=== PATIENT | female | born 1975 | race African-American/Black ===

== ENCOUNTER 2016-05-05 10:40 | Emergency (ER) | payer OTHER ==
[~2016-05-05] VITALS: Ht 170.2 cm; Wt 97.5 kg
[~2016-05-05 10:40] MED LIST: ACETAMINOPHEN-1 EAC1 PO; AMBIEN; AMBIEN 10 MG TA10 MG PO; AMOXICILLIN 50500 M1 PO; ASPIRIN EC81 M1 PO; ATIVAN0.5 M1 PO; ATIVAN1 MG PO; ATORVASTATIN CA40 MG PO; BUSPIRONE HCL10 MG PO; CELEXA; CELEXA10 MG PO; CIPRO500 MG PO; CIPROFLOXACIN500 M1 PO; DEPAKOTE 250MG250 M1 PO; DEPAKOTE250 MG PO; DEPAKOTE500 MG PO; DESYREL; DYAZIDE 37.5-21 EACH; DYAZIDE 37.5-21 EACH PO; FIORICET 50-301 EACH PO; FLONASE 0.05%50 MCG NASAL; GLIPIZIDE XL5 MG PO; GLIPIZIDE5 MG PO; GLUCOPHAGE XR500 MG PO; GLUCOPHAGE1000 MG PO; HYDROXYZINE HCL25 M2 PO; IBUPROFEN 600600 M1 PO; IBUPROFEN 800800 M1 PO; IBUPROFEN 800800 MG PO; IPRAT-ALBUT 0.5-3 ML IH; JANUMET XR 50-1 EAC1 PO; LAMICTAL; LEVAQUIN 500 M500 MG PO; LEVAQUIN 750 M750 MG PO; LISINOPRIL5 MG PO; LOVASTATIN; MAXZIDE-25 MG1 EACH PO; MECLIZINE 25 MG25 M1 PO; NAPROSYN500 MG PO; NORCO 5-325 TA1 EACH PO; NORFLEX100 MG PO; NORVASC 2.5 MG2.5 M1 PO; NORVASC10 MG PO; PAROXETINE HCL20 MG PO; PHENERGAN 25 MG25 M1 PO; PHENERGAN50 MG RC; POTASSIUM20 PO; PREDNISONE 20 M20 MG PO; PROMETHAZINE-C120 ML PO; SLOW-MAG64 MG PO; TESSALON PERLE100 MG PO; TRAZODONE HCL50 MG PO; VALIUM5 MG PO; ZANTAC 150MG T150 M1 PO; ZOFRAN 4 MG ORAL4 MG PO; ZOFRAN ODT4 M1 PO; ZOFRAN ODT4 MG DISSOLVE; ZOFRAN ODT4 MG PO; ZOFRAN4 MG PO; ZPAK PO
[2016-05-05] MEDS ORDERED: ORPHENADRINE C100 M2 PO (11:21)
== END 2016-05-05 11:44 | disposition home or self-care (01) ==
LOC: ER 10:40
DX: M54.32 Sciatica, left side (principal); E11.9 Type 2 diabetes mellitus without complications; I10 Essential (primary) hypertension; F41.9 Anxiety disorder, unspecified; F32.9 Major depressive disorder, single episode, unspecified; E78.00 Pure hypercholesterolemia, unspecified; G47.00 Insomnia, unspecified; Z88.5 Allergy status to narcotic agent; Z88.2 Allergy status to sulfonamides; Z88.1 Allergy status to other antibiotic agents; Z88.6 Allergy status to analgesic agent

== ENCOUNTER 2016-08-12 12:21 | Emergency (ER) | payer OTHER ==
[~2016-08-12] VITALS: Ht 170.2 cm; Wt 98.9 kg
[~2016-08-12 12:21] MED LIST changes: +ORPHENADRINE C100 M2 PO
[2016-08-12] MEDS ORDERED: DOXEPIN 10 MG C10 MG PO (12:33)
[2016-08-12] MEDS ORDERED: AMOXICILLIN500 M1 PO (13:23)
[2016-08-12] MEDS ORDERED: IBUPROFEN 600600 M1 PO (13:23)
== END 2016-08-12 13:49 | disposition home or self-care (01) ==
LOC: ER 12:21
DX: J02.9 Acute pharyngitis, unspecified (principal); I10 Essential (primary) hypertension; F41.9 Anxiety disorder, unspecified; E11.9 Type 2 diabetes mellitus without complications; F32.9 Major depressive disorder, single episode, unspecified; E78.00 Pure hypercholesterolemia, unspecified; Z90.710 Acquired absence of both cervix and uterus; Z88.5 Allergy status to narcotic agent; Z88.2 Allergy status to sulfonamides; Z88.6 Allergy status to analgesic agent; Z88.1 Allergy status to other antibiotic agents

== ENCOUNTER 2016-10-14 09:34 | Emergency (ER) | payer OTHER ==
[~2016-10-14] VITALS: Ht 170.2 cm; Wt 98.4 kg
--- NOTE | ~2016-10-14 | EKG ---
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
[~2016-10-14 09:34] MED LIST changes: +AMOXICILLIN500 M1 PO; +DOXEPIN 10 MG C10 MG PO
[2016-10-14 10:01] LABS: BASOPHILS 0.6 % (0.0-2.0); EOSINOPHILS 3.4 % (0.0-3.0); HEMATOCRIT 39.9 % (37.0-47.0); HEMOGLOBIN 13.8 gm/dL (12.0-15.0); LYMPHOCYTES 38.1 % (24.0-44.0); MANUAL DIFF NO; MCH 30.4 pg (26.0-34.0); MCHC 34.6 g/dL (28.0-37.0); MONOCYTES 7.6 % (1.0-8.0); PLATELET COUNT 361 thou/uL (150-400); POLYS 50.3 % (36.0-66.0); RBC 4.53 mil/uL (4.20-5.00); RDW 12.2 % (10.5-14.5); WBC 7.9 thou/uL (4.0-11.0)
[2016-10-14 10:08] LABS: ANION GAP 10 mmol/L (7-16); BUN 12 mg/dL (7-18); CALCIUM 9.5 mg/dL (8.5-10.1); CHLORIDE 104 mmol/L (98-107); CO2 25 mmol/L (21-32); CREATININE 0.8 mg/dL (0.6-1.0); GLUCOSE 145 mg/dL (74-106); POTASSIUM 3.9 mmol/L (3.5-5.1); SODIUM 139 mmol/L (136-145)
[2016-10-14 10:16] LABS: TROPONIN-I < 0.04 ng/mL (<0.04-0.07)
[2016-10-14] MEDS ORDERED: NAPROSYN500 MG PO (10:40)
== END 2016-10-14 11:09 | disposition home or self-care (01) ==
LOC: ER 09:34
PROVIDERS: Nurse Practitioner
DX: M94.0 Chondrocostal junction syndrome [Tietze] (principal); I10 Essential (primary) hypertension; F41.9 Anxiety disorder, unspecified; E11.9 Type 2 diabetes mellitus without complications; F32.9 Major depressive disorder, single episode, unspecified; E78.00 Pure hypercholesterolemia, unspecified; Z90.710 Acquired absence of both cervix and uterus; Z88.5 Allergy status to narcotic agent; Z88.2 Allergy status to sulfonamides; Z88.1 Allergy status to other antibiotic agents; Z88.6 Allergy status to analgesic agent

== ENCOUNTER 2017-02-07 08:27 | Emergency (ER) | payer OTHER ==
[~2017-02-07] VITALS: Ht 170.2 cm; Wt 98.4 kg
[~2017-02-07 08:27] MED LIST changes: +METFORMIN HCL500 MG PO
[2017-02-07] MEDS ORDERED: ABILIFY 5 MG TAB5 MG PO (08:49)
[2017-02-07] MEDS ORDERED: NEURONTIN 300M300 M2 PO (08:49)
[2017-02-07 09:07] LABS: ABSOLUTE NEUTROPHILS 6.6 thou/uL (1.4-8.2); BASOPHILS 0.6 % (0.0-2.0); EOSINOPHILS 2.7 % (0.0-3.0); HEMOGLOBIN 12.2 gm/dL (12.0-15.0); LYMPHOCYTES 31.9 % (24.0-44.0); MCH 29.6 pg (26.0-34.0); MCV 87.1 fL (80.0-100.0); PLATELET COUNT 374 thou/uL (150-400); POLYS 58.8 % (36.0-66.0); RBC 4.13 mil/uL (4.20-5.00); RDW 11.9 % (10.5-14.5); WBC 11.2 thou/uL (4.0-11.0)
[2017-02-07 09:08] LABS: URINE BILIRUBIN NEGATIVE (Negative); URINE BLOOD NEGATIVE (Negative); URINE COLOR YELLOW; URINE GLUCOSE-RANDOM* NEGATIVE (Negative); URINE KETONES NEGATIVE (Negative); URINE NITRITE NEGATIVE (Negative); URINE PROTEIN (DIPSTICK) NEGATIVE (Negative); URINE SPECIFIC GRAVITY 1.025 (1.003-1.035); URINE UROBILINOGEN 0.2 E.U./dl (0.2-1.0)
[2017-02-07 09:09] LABS: MANUAL DIFF NO
[2017-02-07 09:16] LABS: CASTS None Seen /LPF (None Seen); SQUAMOUS >10 Many /LPF (0-3); URINE WBC 0-5 Rare /HPF (0-5)
[2017-02-07 09:17] LABS: BACTERIA >30 Many /HPF (None Seen); CRYSTALS None Seen /LPF (None Seen); URINE RBC None Seen /HPF (0-2)
[2017-02-07 09:19] LABS: CALCIUM 9.1 mg/dL (8.5-10.1); CREATININE 0.8 mg/dL (0.6-1.0); POTASSIUM 3.7 mmol/L (3.5-5.1)
[2017-02-07 09:24] LABS: ALBUMIN 3.9 g/dL (3.4-5.0); DIRECT BILIRUBIN 0.2 mg/dL (<0.1-0.3); TOTAL PROTEIN 7.7 g/dL (6.4-8.2)
[2017-02-07] MEDS ORDERED: PROTONIX40 MG PO (10:42)
[2017-02-07] MEDS ORDERED: PHENERGAN 25 MG25 M1 PO (10:42)
[2017-02-07] MEDS ORDERED: ZOFRAN ODT4 MG PO (10:42)
== END 2017-02-07 10:45 | disposition home or self-care (01) ==
LOC: ER 08:27
PROVIDERS: Emergency Medicine
DX: R10.33 Periumbilical pain (principal); R11.0 Nausea; I10 Essential (primary) hypertension; F41.9 Anxiety disorder, unspecified; E11.9 Type 2 diabetes mellitus without complications; F32.9 Major depressive disorder, single episode, unspecified; E78.00 Pure hypercholesterolemia, unspecified; Z90.710 Acquired absence of both cervix and uterus; Z86.59 Personal history of other mental and behavioral disorders; Z88.2 Allergy status to sulfonamides; Z88.5 Allergy status to narcotic agent; Z88.1 Allergy status to other antibiotic agents

== ENCOUNTER 2017-03-26 12:36 | Emergency (ER) | payer OTHER ==
[~2017-03-26] VITALS: Ht 170.2 cm; Wt 97.1 kg
[~2017-03-26 12:36] MED LIST changes: +ABILIFY 5 MG TAB5 MG PO; +NEURONTIN 300M300 M2 PO; +PROTONIX40 MG PO
[2017-03-26] MEDS ORDERED: NAPROSYN500 MG PO (13:24)
== END 2017-03-26 13:27 | disposition home or self-care (01) ==
LOC: ER 12:36
DX: N60.12 Diffuse cystic mastopathy of left breast (principal); I10 Essential (primary) hypertension; F41.9 Anxiety disorder, unspecified; E11.9 Type 2 diabetes mellitus without complications; F32.9 Major depressive disorder, single episode, unspecified; E78.00 Pure hypercholesterolemia, unspecified; Z90.710 Acquired absence of both cervix and uterus; Z88.5 Allergy status to narcotic agent; Z88.2 Allergy status to sulfonamides; Z88.6 Allergy status to analgesic agent

== ENCOUNTER 2017-05-13 18:03 | Emergency (ER) | payer OTHER ==
[~2017-05-13] VITALS: Ht 170.2 cm; Wt 97.1 kg
--- NOTE | ~2017-05-13 | EKG ---
[address] [place] [address] ELECTROCARDIOGRAM REPORT Name: RUSSELL KURTZ RISSA Room #: [facility] [id number] Admission: 05/13/17 Attend Phys: Discharge: 05/13/17 Date of : [birth year] Report #: [id number] THIS REPORT FOR: //name// [facility] ED Test Date: 2017-05-13 Test Time: 18:10:42 Pat Name: RUSSELL KURTZ Department: Room: Gender: F Mgmt Consultant: [facility] : 1975 Requested By: Winsome Krause Order Number: [id number] MD: Bob Avila Measurements Intervals [place] Rate: 80 P: 74 [place]: 177 QRS: 36 QRSD: 81 T: 16 QT: 379 QTc: 438 Interpretive Statements Sinus rhythm No significant abnormality Compared to ECG 10/14/2016 09:35:13 No significant changes Electronically Signed On 05-14-2017 8:31:18 SYSTEM SUPPORT SPECIALIST by Bob Avila [email or web address] <ELECTRONICALLY SIGNED> By: Bob Avila MD, [facility] 05/14/17 0831 1810 1810 Bob Avila MD, FACC /EPI
[2017-05-13 19:30] LABS: ABSOLUTE NEUTROPHILS 5.7 thou/uL (1.4-8.2); BASOPHILS 0.8 % (0.0-2.0); EOSINOPHILS 3.7 % (0.0-3.0); HEMATOCRIT 37.6 % (37.0-47.0); LYMPHOCYTES 33.7 % (24.0-44.0); MCH 30.2 pg (26.0-34.0); MCHC 34.6 g/dL (28.0-37.0); MCV 87.1 fL (80.0-100.0); MONOCYTES 5.9 % (1.0-8.0); PLATELET COUNT 359 thou/uL (150-400); POLYS 55.9 % (36.0-66.0); RBC 4.32 mil/uL (4.20-5.00); RDW 12.3 % (10.5-14.5); WBC 10.2 thou/uL (4.0-11.0)
[2017-05-13 19:33] LABS: ANION GAP 9 mmol/L (7-16); BUN 17 mg/dL (7-18); CALCIUM 9.5 mg/dL (8.5-10.1); CHLORIDE 106 mmol/L (98-107); CO2 25 mmol/L (21-32); GLUCOSE 125 mg/dL (74-106); SODIUM 140 mmol/L (136-145)
[2017-05-13 19:42] LABS: LIPASE 256 U/L (73-393); SGOT 12 U/L (15-37); SGPT 20 U/L (30-65); TOTAL BILIRUBIN 0.3 mg/dL (<0.1-1.0); TOTAL PROTEIN 7.9 g/dL (6.4-8.2); TROPONIN-I < 0.04 ng/mL (<0.06)
[2017-05-13 20:02] VITALS: BP 122/76
== END 2017-05-13 20:02 | disposition home or self-care (01) ==
LOC: ER 18:03
PROVIDERS: Nurse Practitioner Family
DX: R07.89 Other chest pain (principal); I10 Essential (primary) hypertension; F41.9 Anxiety disorder, unspecified; E11.9 Type 2 diabetes mellitus without complications; F32.9 Major depressive disorder, single episode, unspecified; E78.00 Pure hypercholesterolemia, unspecified; Z90.710 Acquired absence of both cervix and uterus; Z88.5 Allergy status to narcotic agent; Z88.2 Allergy status to sulfonamides; Z88.6 Allergy status to analgesic agent

== ENCOUNTER 2017-07-28 16:18 | Inpatient (IN) | payer OTHER ==
[~2017-07-28] VITALS: Ht 170.2 cm; Wt 102.1 kg
--- NOTE | ~2017-07-28 | EKG ---
[address] [place] [address] ELECTROCARDIOGRAM REPORT Name: JOCELYN KURTZNICOLASA KWOK Room #: 420-P ADM IN M.R.#: [id number] Admission: 07/28/17 Attend Phys: Mehul Gr MD Discharge: Date of : [birth year] Report #: [id number] THIS REPORT FOR: //name// 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 : 1975 Requested By: Di Hendricks Order Number: [id number] MD: Bob Avila Measurements Intervals [place] Rate: 90 P: 73 [place]: 181 QRS: 24 QRSD: 73 T: 2 QT: 339 QTc: 415 Interpretive Statements Sinus rhythm Poor R wave progression Compared to ECG 05/13/2017 18:10:42 No significant changes Electronically Signed On 07-29-2017 7:41:05 CDT by Bob Avila [email or web address] <ELECTRONICALLY SIGNED> By: Bob Avila MD, [facility] 07/29/17 0741 03 03 Bob Avila MD, [facility] /EPI
--- NOTE | ~2017-07-28 | EKG ---
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: Douglas SANCHEZ : 1975 Requested By: Everardo Harley Order Number: [id number] MD: Bob Avila Measurements Intervals [place] Rate: 88 P: 69 [place]: 176 QRS: 36 QRSD: 73 T: 15 QT: 350 QTc: 424 Interpretive Statements Sinus rhythm No significant abnormality Compared to ECG 07/28/2017 17:04:30 Poor R-wave progression no longer present Electronically Signed On 07-29-2017 17:09:14 CDT by Bob Avila [email or web address] <ELECTRONICALLY SIGNED> By: Bob Avila MD, [facility] 07/29/17 1709 18 18 Bob Avila MD, [facility] /EPI
[2017-07-28 16:19] VITALS: BP 137/78
[2017-07-28 17:15] LABS: ABSOLUTE NEUTROPHILS 5.4 thou/uL (1.4-8.2); BASOPHILS 0.7 % (0.0-2.0); HEMATOCRIT 35.7 % (37.0-47.0); HEMOGLOBIN 12.9 gm/dL (12.0-15.0); LYMPHOCYTES 37.6 % (24.0-44.0); MCH 31.9 pg (26.0-34.0); MCHC 36.1 g/dL (28.0-37.0); MCV 88.3 fL (80.0-100.0); MONOCYTES 7.3 % (1.0-8.0); PLATELET COUNT 323 thou/uL (150-400); POLYS 51.4 % (36.0-66.0); RBC 4.04 mil/uL (4.20-5.00); RDW 12.2 % (10.5-14.5); WBC 10.4 thou/uL (4.0-11.0)
[2017-07-28 17:24] LABS: ANION GAP 7 mmol/L (7-16); BUN 17 mg/dL (7-18); CALCIUM 9.1 mg/dL (8.5-10.1); CHLORIDE 105 mmol/L (98-107); CO2 27 mmol/L (21-32); CREATININE 0.8 mg/dL (0.6-1.0); GLUCOSE 211 mg/dL (74-106); POTASSIUM 4.7 mmol/L (3.5-5.1); SODIUM 139 mmol/L (136-145)
[2017-07-28 17:33] LABS: TROPONIN-I < 0.04 ng/mL (<0.06)
[2017-07-28 18:28] VITALS: BP 141/84
[2017-07-28 19:37] VITALS: BP 140/79
[2017-07-28 20:00] VITALS: BP 128/92
[2017-07-28] MEDS ORDERED: IMITREX 25 MG T25 M1 PO (21:13)
[2017-07-29 05:30] VITALS: BP 129/83
[2017-07-29 06:17] LABS: ANION GAP 10 mmol/L (7-16); BUN 15 mg/dL (7-18); CALCIUM 9.5 mg/dL (8.5-10.1); CHLORIDE 103 mmol/L (98-107); CO2 26 mmol/L (21-32); CREATININE 0.7 mg/dL (0.6-1.0); GLUCOSE 144 mg/dL (74-106); POTASSIUM 4.4 mmol/L (3.5-5.1); SODIUM 139 mmol/L (136-145); TROPONIN-I < 0.04 ng/mL (<0.06)
[2017-07-29 07:25] VITALS: BP 116/71
[2017-07-29 13:10] VITALS: BP 142/79
[2017-07-29 15:38] VITALS: BP 132/73
[2017-07-29 19:54] VITALS: BP 126/63
[2017-07-30 03:19] VITALS: BP 117/75
[2017-07-30 08:10] VITALS: BP 162/99
[2017-07-30 15:09] VITALS: BP 120/44
[2017-07-30 15:27] VITALS: BP 162/99
== END 2017-07-30 17:37 | disposition home or self-care (01) | DRG 313 ==
LOC: ER 16:18 → 4E 17:55 → EROBS 17:55 → 4E 19:40
PROVIDERS: Emergency Medicine; Hospitalist
DX: R07.89 Other chest pain (principal); E11.9 Type 2 diabetes mellitus without complications; I10 Essential (primary) hypertension; G40.909 Epilepsy, unspecified, not intractable, without status epilepticus; F41.9 Anxiety disorder, unspecified; E78.00 Pure hypercholesterolemia, unspecified; F32.9 Major depressive disorder, single episode, unspecified; Z98.51 Tubal ligation status; Z88.2 Allergy status to sulfonamides; Z88.8 Allergy status to other drugs, medicaments and biological substances; Z79.899 Other long term (current) drug therapy; Z88.6 Allergy status to analgesic agent; Z88.5 Allergy status to narcotic agent
CPT/HCPCS: 10183

== ENCOUNTER → 2017-09-10 | Outpatient (CLI) | payer OTHER ==
[~2017-09-10] MED LIST changes: +IMITREX 25 MG T25 M1 PO
== END ==
LOC: MRI 06:35
DX: T14.8XXA Other injury of unspecified body region, initial encounter (principal); M51.37 Other intervertebral disc degeneration, lumbosacral region; M12.88 Other specific arthropathies, not elsewhere classified, other specified site; M48.07 Spinal stenosis, lumbosacral region

== ENCOUNTER 2017-09-25 16:56 | Emergency (ER) | payer OTHER ==
[~2017-09-25] VITALS: Ht 170.2 cm; Wt 104.8 kg
--- NOTE | ~2017-09-25 | EKG ---
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
[2017-09-25] MEDS ORDERED: DEPAKENE250 MG PO (17:08)
[2017-09-25] MEDS ORDERED: ZANTAC 150MG T150 MG PO (17:08)
[2017-09-25] MEDS ORDERED: LISINOPRIL-HCT1 EAC2 PO (17:10)
[2017-09-25] MEDS ORDERED: FLEXERIL PO (17:11)
[2017-09-25] MEDS ORDERED: RIZATRIPTAN10 M1 PO (17:12)
[2017-09-25] MEDS ORDERED: ASPIR 8181 MG PO (17:13)
[2017-09-25] MEDS ORDERED: PROPRANOLOL 1010 MG PO (17:13)
[2017-09-25] MEDS ORDERED: ZOFRAN ODT4 MG PO (17:13)
[2017-09-25] MEDS ORDERED: ANTIVERT25 MG PO (17:13)
[2017-09-25] MEDS ORDERED: NITROGLYCERIN0.4 MG SUBLING (17:14)
[2017-09-25] MEDS ORDERED: PHENERGAN 25 MG25 M1 PO (17:14)
[2017-09-25] MEDS ORDERED: TOPAMAX50 MG PO (17:14)
[2017-09-25 17:37] LABS: BASOPHILS 0.6 % (0.0-2.0); EOSINOPHILS 3.5 % (0.0-3.0); HEMATOCRIT 34.8 % (37.0-47.0); HEMOGLOBIN 12.2 gm/dL (12.0-15.0); LYMPHOCYTES 32.7 % (24.0-44.0); MCH 30.7 pg (26.0-34.0); MCHC 35.1 g/dL (28.0-37.0); MCV 87.6 fL (80.0-100.0); MONOCYTES 5.9 % (1.0-8.0); PLATELET COUNT 320 thou/uL (150-400); POLYS 57.3 % (36.0-66.0); RBC 3.97 mil/uL (4.20-5.00); RDW 11.9 % (10.5-14.5); WBC 8.8 thou/uL (4.0-11.0)
[2017-09-25 17:41] LABS: ANION GAP 10 mmol/L (7-16); BUN 18 mg/dL (7-18); CALCIUM 9.1 mg/dL (8.5-10.1); CHLORIDE 103 mmol/L (98-107); CO2 24 mmol/L (21-32); CREATININE 0.8 mg/dL (0.6-1.0); GLUCOSE 146 mg/dL (74-106); SODIUM 137 mmol/L (136-145)
[2017-09-25 17:49] LABS: TROPONIN-I < 0.04 ng/mL (<0.06)
[2017-09-25] MEDS ORDERED: NAPROSYN500 MG PO (20:31)
[2017-09-25] MEDS ORDERED: PERCOCET PO (20:42)
[2017-09-25] MEDS ORDERED: SENNA-DOCUSATE1 EACH PO (20:42)
== END 2017-09-25 21:35 | disposition home or self-care (01) ==
LOC: ER 16:56
PROVIDERS: Emergency Medicine
DX: R07.89 Other chest pain (principal); I10 Essential (primary) hypertension; E11.9 Type 2 diabetes mellitus without complications; F41.9 Anxiety disorder, unspecified; E78.00 Pure hypercholesterolemia, unspecified; F32.9 Major depressive disorder, single episode, unspecified; G43.909 Migraine, unspecified, not intractable, without status migrainosus; Z88.2 Allergy status to sulfonamides; Z88.5 Allergy status to narcotic agent

== ENCOUNTER 2018-06-06 11:08 | Emergency (ER) | payer OTHER ==
[~2018-06-06] VITALS: Ht 170.2 cm; Wt 106.1 kg
[~2018-06-06 11:08] MED LIST changes: +ANTIVERT25 MG PO; +ASPIR 8181 MG PO; +DEPAKENE250 MG PO; +FLEXERIL PO; +LISINOPRIL-HCT1 EAC2 PO; +NITROGLYCERIN0.4 MG SUBLING; +PERCOCET PO; +PROPRANOLOL 1010 MG PO; +RIZATRIPTAN10 M1 PO; +SENNA-DOCUSATE1 EACH PO; +TOPAMAX50 MG PO; +ZANTAC 150MG T150 MG PO
[2018-06-06] MEDS ORDERED: RESTORIL30 MG PO (11:14)
[2018-06-06] MEDS ORDERED: ACETAMINOPHEN-1 EAC1 PO (11:44)
[2018-06-06] MEDS ORDERED: NORFLEX100 MG PO (11:44)
[2018-06-06] MEDS ORDERED: NAPROSYN500 MG PO (11:44)
[2018-06-06 11:58] VITALS: BP 176/83
== END 2018-06-06 11:58 | disposition home or self-care (01) ==
LOC: ER 11:08
DX: S29.012A Strain of muscle and tendon of back wall of thorax, initial encounter (principal); I10 Essential (primary) hypertension; F41.9 Anxiety disorder, unspecified; E11.9 Type 2 diabetes mellitus without complications; G47.00 Insomnia, unspecified; F32.9 Major depressive disorder, single episode, unspecified; E78.00 Pure hypercholesterolemia, unspecified; G43.909 Migraine, unspecified, not intractable, without status migrainosus; Z88.2 Allergy status to sulfonamides; Z88.5 Allergy status to narcotic agent; Z88.8 Allergy status to other drugs, medicaments and biological substances; X58.XXXA Exposure to other specified factors, initial encounter; Y93.89 Activity, other specified; Y92.89 Other specified places as the place of occurrence of the external cause; Y99.8 Other external cause status

== ENCOUNTER 2019-02-08 11:32 | Emergency (ER) | payer OTHER ==
[~2019-02-08] VITALS: Ht 170.2 cm; Wt 104.3 kg
[~2019-02-08 11:32] MED LIST changes: +RESTORIL30 MG PO
[2019-02-08 11:40] VITALS: BP 142/91
[2019-02-08] MEDS ORDERED: TYLENOL WITH CO1 TA1 PO (12:02)
[2019-02-08] MEDS ORDERED: LIDOCAINE PAIN1 EACH TRANSDERM (12:02)
== END 2019-02-08 12:30 | disposition home or self-care (01) ==
LOC: ER 11:32
DX: M54.5 Low back pain (principal); I10 Essential (primary) hypertension; E11.9 Type 2 diabetes mellitus without complications; E78.00 Pure hypercholesterolemia, unspecified; G43.909 Migraine, unspecified, not intractable, without status migrainosus; F41.9 Anxiety disorder, unspecified; F32.9 Major depressive disorder, single episode, unspecified; Z90.710 Acquired absence of both cervix and uterus; Z98.51 Tubal ligation status; Z88.1 Allergy status to other antibiotic agents; Z88.2 Allergy status to sulfonamides; Z88.6 Allergy status to analgesic agent

== ENCOUNTER 2019-09-28 17:00 | Emergency (ER) | payer OTHER ==
[~2019-09-28] VITALS: Ht 170.2 cm; Wt 108.9 kg
[~2019-09-28 17:00] MED LIST changes: +LIDOCAINE PAIN1 EACH TRANSDERM; +TYLENOL WITH CO1 TA1 PO
[2019-09-28 17:03] VITALS: BP 147/100
[2019-09-28] MEDS ORDERED: LIPITOR80 MG PO (17:14)
[2019-09-28] MEDS ORDERED: TROKENDI XR200 MG PO (17:21)
[2019-09-28] MEDS ORDERED: MELATONIN3 M1 PO (17:22)
[2019-09-28] MEDS ORDERED: MOBIC7.5 MG PO (17:23)
== END 2019-09-28 18:05 | disposition home or self-care (01) ==
LOC: ER 17:00
DX: M25.562 Pain in left knee (principal); R26.2 Difficulty in walking, not elsewhere classified; I10 Essential (primary) hypertension; E11.9 Type 2 diabetes mellitus without complications; F32.9 Major depressive disorder, single episode, unspecified; G43.909 Migraine, unspecified, not intractable, without status migrainosus; E78.00 Pure hypercholesterolemia, unspecified; Z88.8 Allergy status to other drugs, medicaments and biological substances; Z88.2 Allergy status to sulfonamides; Z88.6 Allergy status to analgesic agent; Z98.51 Tubal ligation status; Z79.899 Other long term (current) drug therapy; Z90.711 Acquired absence of uterus with remaining cervical stump

== ENCOUNTER 2020-01-28 16:51 | Emergency (ER) | payer OTHER ==
[~2020-01-28] VITALS: Ht 170.2 cm; Wt 106.6 kg
--- NOTE | ~2020-01-28 | EKG ---
[facility] [place] [address] ELECTROCARDIOGRAM REPORT Name: JOCELYN KURTZNICOLASA KWOK Room #: PRE M.R.#: [id number] Admission: Attend Phys: Discharge: Date of : [birth year] Report #: [id number] THIS REPORT FOR: cc: Karthik Jimenez Brady DO Epiphany, Epiphany MD ~ THIS REPORT FOR: //name// [facility] ED Test Date: 2020-01-28 Test Time: 17:07:41 Pat Name: RAMONA KURTZ Department: Room: Gender: F Mechanism Inspector: emily : 1975 Requested By: Jignesh Ngo Order Number: [id number] MD: Measurements Intervals [place] Rate: 90 P: 58 OR: 171 QRS: 13 QRSD: 71 T: 8 QT: 343 QTc: 420 Interpretive Statements Sinus rhythm Compared to ECG 09/25/2017 17:00:35 No significant changes [email or web address] By: 06 06 Gabbi Seo MD /EPI
[~2020-01-28 16:51] MED LIST changes: +LIPITOR80 MG PO; +MELATONIN3 M1 PO; +MOBIC7.5 MG PO; +TROKENDI XR200 MG PO
[2020-01-28 17:27] LABS: ABSOLUTE NEUTROPHILS 7.1 thou/uL (1.4-8.2); EOSINOPHILS 2.1 % (0.0-3.0); HEMATOCRIT 38.7 % (37.0-47.0); HEMOGLOBIN 13.2 gm/dL (12.0-15.0); LYMPHOCYTES 23.9 % (24.0-44.0); MCH 30.6 pg (26.0-34.0); MCHC 34.1 g/dL (28.0-37.0); MCV 89.7 fL (80.0-100.0); MONOCYTES 5.6 % (1.0-8.0); PLATELET COUNT 376 thou/uL (150-400); POLYS 67.4 % (36.0-66.0); RBC 4.32 mil/uL (4.20-5.00); RDW 12.1 % (10.5-14.5); WBC 10.5 thou/uL (4.0-11.0)
[2020-01-28 17:36] LABS: ANION GAP 10 mmol/L (7-16); BUN 16 mg/dL (7-18); CALCIUM 9.3 mg/dL (8.5-10.1); CHLORIDE 103 mmol/L (98-107); CO2 24 mmol/L (21-32); GLUCOSE 181 mg/dL (74-106); SODIUM 137 mmol/L (136-145)
[2020-01-28 17:45] LABS: TROPONIN-I <0.06 ng/mL (<0.06)
[2020-01-28 18:13] VITALS: BP 134/85
== END 2020-01-28 18:13 | disposition home or self-care (01) ==
LOC: ER 16:51
PROVIDERS: Nurse Practitioner
DX: G89.29 Other chronic pain (principal); R07.89 Other chest pain; I10 Essential (primary) hypertension; E11.9 Type 2 diabetes mellitus without complications; G43.909 Migraine, unspecified, not intractable, without status migrainosus; E78.5 Hyperlipidemia, unspecified; Z90.710 Acquired absence of both cervix and uterus; Z79.899 Other long term (current) drug therapy; Z88.8 Allergy status to other drugs, medicaments and biological substances; Z88.2 Allergy status to sulfonamides

== ENCOUNTER 2020-04-05 11:16 | Emergency (ER) | payer OTHER ==
[~2020-04-05] VITALS: Ht 170.2 cm; Wt 108.4 kg
[2020-04-05] MEDS ORDERED: NORCO 5-325 TA1 EAC2 PO (12:16)
[2020-04-05 13:09] VITALS: BP 128/76
[2020-04-05] MEDS ORDERED: ROXICODONE5 M2 PO (13:36)
== END 2020-04-05 13:10 | disposition home or self-care (01) ==
LOC: ER 11:16
DX: M25.512 Pain in left shoulder (principal); G89.29 Other chronic pain; M54.9 Dorsalgia, unspecified; I10 Essential (primary) hypertension; E11.9 Type 2 diabetes mellitus without complications; E78.5 Hyperlipidemia, unspecified; G43.909 Migraine, unspecified, not intractable, without status migrainosus; Z79.899 Other long term (current) drug therapy; Z88.2 Allergy status to sulfonamides; Z88.8 Allergy status to other drugs, medicaments and biological substances

== ENCOUNTER 2020-05-28 10:21 | Emergency (ER) | payer OTHER ==
[~2020-05-28] VITALS: Ht 170.2 cm; Wt 107.0 kg
[~2020-05-28 10:21] MED LIST changes: +NORCO 5-325 TA1 EAC2 PO; +ROXICODONE5 M2 PO
[2020-05-28] MEDS ORDERED: FAMOTIDINE 40 M40 M1 PO (11:48)
[2020-05-28 11:50] LABS: ABSOLUTE NEUTROPHILS 5.7 thou/uL (1.4-8.2); BASOPHILS 0.5 % (0.0-2.0); EOSINOPHILS 1.7 % (0.0-3.0); HEMATOCRIT 37.6 % (37.0-47.0); HEMOGLOBIN 12.8 gm/dL (12.0-15.0); LYMPHOCYTES 25.1 % (24.0-44.0); MCH 30.5 pg (26.0-34.0); MCV 89.9 fL (80.0-100.0); MONOCYTES 7.6 % (1.0-8.0); PLATELET COUNT 432 thou/uL (150-400); POLYS 65.1 % (36.0-66.0); RBC 4.18 mil/uL (4.20-5.00); RDW 12.2 % (10.5-14.5); WBC 8.8 thou/uL (4.0-11.0)
[2020-05-28 11:56] LABS: ANION GAP 8 mmol/L (7-16); BUN 17 mg/dL (7-18); CALCIUM 9.3 mg/dL (8.5-10.1); CHLORIDE 101 mmol/L (98-107); CO2 27 mmol/L (21-32); GLUCOSE 170 mg/dL (74-106); POTASSIUM 3.6 mmol/L (3.5-5.1); SODIUM 136 mmol/L (136-145)
[2020-05-28 11:57] LABS: URINE BILIRUBIN NEGATIVE (Negative); URINE BLOOD NEGATIVE (Negative); URINE CLARITY CLEAR; URINE COLOR YELLOW; URINE GLUCOSE-RANDOM* NEGATIVE (Negative); URINE KETONES NEGATIVE (Negative); URINE LEUKOCYTES-REFLEX NEGATIVE (Negative); URINE NITRITE-REFLEX NEGATIVE (Negative); URINE PROTEIN (DIPSTICK) NEGATIVE (Negative); URINE UROBILINOGEN 0.2 E.U./dl (0.2-1.0)
[2020-05-28 12:07] LABS: ALBUMIN 3.9 g/dL (3.4-5.0); LIPASE 120 U/L (73-393); SGOT 13 U/L (15-37); SGPT 21 U/L (14-59); TOTAL BILIRUBIN 0.7 mg/dL (0.2-1.0); TOTAL PROTEIN 7.9 g/dL (6.4-8.2); TROPONIN-I <0.06 ng/mL (<0.06)
[2020-05-28] MEDS ORDERED: ZOFRAN ODT4 MG PO (12:59)
[2020-05-28 13:04] VITALS: BP 110/55
--- NOTE | 2020-05-28 13:18 | EKG ---
[address] [employer] [address] ELECTROCARDIOGRAM REPORT Name: ELEAZAR KURTZIsauro KWOK Room #: [facility] [id number] Admission: 05/28/20 Attend Phys: Discharge: Date of : [birth year] Report #: [id number] [facility] ED Test Date: 2020-05-28 Test Time: 12:17:15 Pat Name: RAMONA KURTZ Department: Room: Gender: F Dictaphone Transcriber: KHUSHBU : 1975 Requested By: Duane Beltran Order Number: [id number] MD: Parveen Hawkins Measurements Intervals [place] Rate: 78 P: 70 [place]: 190 QRS: 26 QRSD: 80 T: 15 QT: 407 QTc: 464 Interpretive Statements Sinus rhythm Compared to ECG 01/28/2020 17:07:41 No significant changes Electronically Signed On 05-28-2020 13:18:29 SIMONIZER by Parveen Hawkins [email or web address] <ELECTRONICALLY SIGNED> By: Parveen Hawkins MD 05/28/20 1318 1217 1217 Parveen Hawkins MD /EPI
== END 2020-05-28 13:44 | disposition home or self-care (01) ==
LOC: ER 10:21
PROVIDERS: Emergency Medicine
DX: R11.2 Nausea with vomiting, unspecified (principal); Z20.828 Contact with and (suspected) exposure to other viral communicable diseases; R05 Cough; I10 Essential (primary) hypertension; E11.9 Type 2 diabetes mellitus without complications; E78.00 Pure hypercholesterolemia, unspecified; G43.909 Migraine, unspecified, not intractable, without status migrainosus; Z88.5 Allergy status to narcotic agent; Z88.2 Allergy status to sulfonamides; Z88.6 Allergy status to analgesic agent; Z88.8 Allergy status to other drugs, medicaments and biological substances; Z79.899 Other long term (current) drug therapy

== ENCOUNTER 2020-06-09 20:57 | Emergency (ER) | payer OTHER ==
[~2020-06-09] VITALS: Ht 170.2 cm; Wt 108.9 kg
[~2020-06-09 20:57] MED LIST changes: +FAMOTIDINE 40 M40 M1 PO
[2020-06-09] MEDS ORDERED: PROSCAR 5MG TABL5 M1 PO (21:07)
[2020-06-09 21:47] LABS: ABSOLUTE NEUTROPHILS 4.4 thou/uL (1.4-8.2); BASOPHILS 0.6 % (0.0-2.0); EOSINOPHILS 3.9 % (0.0-3.0); HEMATOCRIT 26.9 % (37.0-47.0); HEMOGLOBIN 9.1 gm/dL (12.0-15.0); LYMPHOCYTES 29.5 % (24.0-44.0); MCH 30.7 pg (26.0-34.0); MCHC 33.8 g/dL (28.0-37.0); MCV 90.8 fL (80.0-100.0); MONOCYTES 7.8 % (1.0-8.0); PLATELET COUNT 262 thou/uL (150-400); POLYS 58.2 % (36.0-66.0); RBC 2.97 mil/uL (4.20-5.00); RDW 12.2 % (10.5-14.5); WBC 7.6 thou/uL (4.0-11.0)
[2020-06-09 22:00] LABS: CALCIUM 8.4 mg/dL (8.5-10.1); CREATININE 0.9 mg/dL (0.6-1.0); POTASSIUM 3.8 mmol/L (3.5-5.1)
[2020-06-09 22:07] LABS: TOTAL BILIRUBIN 0.4 mg/dL (0.2-1.0); TOTAL PROTEIN 6.7 g/dL (6.4-8.2)
[2020-06-09] MEDS ORDERED: MELOXICAM7.5 MG PO (22:30)
[2020-06-09] MEDS ORDERED: OXYCODONE PO (22:33)
[2020-06-09] MEDS ORDERED: AZITHROMYCIN500 MG PO (22:34)
[2020-06-09] MEDS ORDERED: TROKENDI XR200 MG PO (22:35)
[2020-06-09] MEDS ORDERED: ZOFRAN PO (22:37)
[2020-06-09 22:53] VITALS: BP 159/101
== END 2020-06-09 22:54 | disposition home or self-care (01) ==
LOC: ER 20:57
PROVIDERS: Physician Assistant
DX: R22.43 Localized swelling, mass and lump, lower limb, bilateral (principal); I10 Essential (primary) hypertension; E11.9 Type 2 diabetes mellitus without complications; E78.5 Hyperlipidemia, unspecified; G43.909 Migraine, unspecified, not intractable, without status migrainosus; Z90.710 Acquired absence of both cervix and uterus; Z79.899 Other long term (current) drug therapy; Z79.2 Long term (current) use of antibiotics; Z88.2 Allergy status to sulfonamides; Z88.5 Allergy status to narcotic agent; Z88.8 Allergy status to other drugs, medicaments and biological substances

== ENCOUNTER 2020-07-08 12:21 | Emergency (ER) | payer OTHER ==
[~2020-07-08] VITALS: Ht 170.2 cm; Wt 106.6 kg
[~2020-07-08 12:21] MED LIST changes: +AZITHROMYCIN500 MG PO; +MELOXICAM7.5 MG PO; +OXYCODONE PO; +PROSCAR 5MG TABL5 M1 PO; +ZOFRAN PO
[2020-07-08] MEDS ORDERED: TYLENOL325 MG PO (12:30)
[2020-07-08] MEDS ORDERED: TORADOL 10 MG T10 MG PO (13:53)
[2020-07-08 13:57] VITALS: BP 150/85
== END 2020-07-08 13:57 | disposition home or self-care (01) ==
LOC: ER 12:21
DX: G89.29 Other chronic pain (principal); M25.512 Pain in left shoulder; I10 Essential (primary) hypertension; E11.9 Type 2 diabetes mellitus without complications; G43.909 Migraine, unspecified, not intractable, without status migrainosus; E78.5 Hyperlipidemia, unspecified; Z90.710 Acquired absence of both cervix and uterus; Z79.899 Other long term (current) drug therapy; Z79.1 Long term (current) use of non-steroidal anti-inflammatories (NSAID); Z88.2 Allergy status to sulfonamides; Z88.8 Allergy status to other drugs, medicaments and biological substances

== ENCOUNTER 2021-01-21 07:41 | Emergency (ER) | payer OTHER ==
[~2021-01-21] VITALS: Ht 170.2 cm; Wt 105.7 kg
[~2021-01-21 07:41] MED LIST changes: +TORADOL 10 MG T10 MG PO; +TYLENOL325 MG PO
[2021-01-21] MEDS ORDERED: APAP W/CODEINE1 TA2 PO (08:53)
[2021-01-21] MEDS ORDERED: ULTRA-LIGHT RO1 EACH (08:55)
[2021-01-21 09:15] VITALS: BP 171/97
== END 2021-01-21 09:16 | disposition home or self-care (01) ==
LOC: ER 07:41
DX: M79.641 Pain in right hand (principal); R22.31 Localized swelling, mass and lump, right upper limb; I10 Essential (primary) hypertension; E11.9 Type 2 diabetes mellitus without complications; E78.00 Pure hypercholesterolemia, unspecified; G43.909 Migraine, unspecified, not intractable, without status migrainosus; Z90.710 Acquired absence of both cervix and uterus; Z98.51 Tubal ligation status; Z88.2 Allergy status to sulfonamides; Z88.1 Allergy status to other antibiotic agents